=== PATIENT | male | born 1940 | race Caucasian/White ===

== ENCOUNTER 2016-10-11 09:41 | Inpatient (IN) | payer MEDICARE, OTHER ==
--- NOTE | ~2016-10-11 | OP ---
Record Of Operation [facility] [address] [place]. [address] NAME: MAEVE HERZOG : 36 STATUS : DIS IN PAT#: [id number] AGE: 75 ADM/REG DATE : 10/11/16 MR#: [id number] REPORT SERV DATE: 10/14/16 DICTATED BY: JOSSELYN VINES DATE: 10/11/16 REPORT STATUS : Draft TRANSCRIBED BY: MODL DATE: 10/11/16 DATE OF PROCEDURE: 10/11/2016 PREOPERATIVE DIAGNOSIS: 5.5 cm abdominal aortic aneurysm with recent rapid growth. POSTOPERATIVE DIAGNOSIS: 5.5 cm abdominal aortic aneurysm with recent rapid growth. PROCEDURE: 1. Ultrasound-guided percutaneous access, bilateral common femoral arteries. 2. Catheter placement in the abdominal aorta from bilateral femoral access. 3. Abdominal aortogram. 4. Endovascular abdominal aortic aneurysm repair with modular endograft with 2 docking limbs (Medtronic Endurant EIIs, 36 x 14 x 103 main body from the right, 16 x 24 x 156 left iliac limb, and 16 x 24 x 124 right iliac limb. SURGEON: Josselyn Vines M.D. NUMERICAL CONTROL LATHE OPERATOR: Joe. ANESTHESIA: General endotracheal. ESTIMATED BLOOD LOSS: 25 mL. CONTRAST: 40 mL. IV FLUIDS: 500 mL. COMPLICATIONS: None. INDICATION: Mr. Herzog is a pleasant 75-year-old man with known diagnosis of abdominal aortic aneurysm. It has increased in size from 4.8 cm to 5.5 cm over the past year. He is recommended for elective endovascular repair. DETAILS OF PROCEDURE: After informed consent was obtained, patient was brought to the endovascular suite, placed in supine position. After administration of anesthesia, he was intubated. He was prepped and draped in the usual sterile fashion. A time-out was performed. I commenced the procedure with ultrasound-guided percutaneous access of the right common femoral artery. A permanent image of the artery documenting patency was saved and stored in the patient's chart. I accessed with an 18-gauge entry needle, passed a Bentson wire confirmed within aorta under fluoroscopy. I then made a stab incision over the access site down the common femoral artery. I dilated the access site with a 6-Kosovan sheath. I then placed two ProGlide closure devices in the Preclose technique. We then systemically heparinized. I then placed 11-Kosovan sheath. After that I used ultrasound guidance to percutaneously access the left side in the same manner. Image of that vessel was saved and stored in the patient's chart as well. I accessed with 18-gauge entry needle, passed a Bentson wire confirmed within the aorta under fluoroscopy. I then again made a Record Of Operation [facility] [address] [place]. [address] NAME: MAEVE HERZOG : 38 STATUS : DIS IN PAT#: [id number] AGE: 75 ADM/REG DATE : 10/11/16 MR#: [id number] REPORT SERV DATE: 10/14/16 DICTATED BY: JOSSELYN VINES DATE: 10/11/16 REPORT STATUS : Draft TRANSCRIBED BY: MODEddi DATE: 10/11/16 stab incision down to the common femoral artery over the access site. After that, I dilated the tract with a 6-Kosovan sheath. Two ProGlide closure devices were placed on the left side in the Preclose technique as well. Eleven-Kosovan sheath was placed on that side as well. After that, I used a bur 2 to exchange the Bentson wire from the right for an Amplatz wire. I advanced a Marker flush catheter from the left. Abdominal aortogram was performed, which demonstrated the infrarenal abdominal aorta to be aneurysmal. There was no contrast extravasation. The iliac vessels are ectatic but not frankly aneurysmal. Internal and external iliac arteries were patent bilaterally. Renal arteries were patent bilaterally with no stenosis. After that, based on preoperative measurements, we selected a Medtronic Endurant EIIs device. This was delivered over the Amplatz wire from the right femoral access. This was a 36 x 14 x 103 main body device. This was delivered up to the level of the renal arteries. It was deployed down to the contralateral gate. We then released the suprarenal fixation. This was uneventful. After that, we cannulated the contralateral gate with a bryson 2 and a Bentson wire. Catheter spun freely within the graft indicating it was within the lumen of the graft. I then placed an Amplatz wire on that side. Marker flush catheter was advanced over the wire from the left femoral sheath. Retrograde contrast injection was performed through the left femoral sheath. The level of the internal iliac artery was marked on the left. Based on this measurement, we selected a 16 x 24 x 156 left iliac limb. This was deployed without difficulty. Removed the delivery system. Replaced 11-Kosovan sheath. After that, we completed the delivery of the main body system. We replaced the 16-Kosovan sheath. We then performed retrograde contrast injection through the right femoral sheath again noting the internal iliac on the right. Based on this measurement, we selected a 16 x 24 x 124 right iliac limb. This was deployed without difficulty. Delivery system was removed leaving the 16-Kosovan sheath in place. After that we used a Reliant balloon to balloon the proximal distal fixation sites as well as stent overlap sites. Completion of aortogram was performed, which showed perfect position of the aortic stent graft with exclusion of the aneurysm and no significant endoleak. Bilateral renal arteries and internal iliac arteries remained patent with no impairment of flow. After that, wires and catheters were removed. Sheaths on both sides were removed, and the access site successfully closed with a ProGlide closure device through the Preclose technique. We ensured hemostasis. Cord incision was closed the 4-0 Monocryl and Dermabond. Sterile dressings were applied. The patient tolerated the procedure well without complications. I was present for this entire case as dictated. VINICIUS/LUISA Josselyn Vines M.D. / [id number] CC: Yoli Carmona M.D. Ahmad Ibrahimbacha, MD Record Of [address] [address] NAME: MAEVE HERZOG : 36 STATUS : DIS IN PAT#: [id number] AGE: 75 ADM/REG DATE : 10/11/16 MR#: [id number] REPORT SERV DATE: 10/14/16 DICTATED BY: JOSSELYN VINES. DATE: 10/11/16 REPORT STATUS : Draft TRANSCRIBED BY: MODL DATE: 10/11/16 Tasia Avendano MD
[~2016-10-11 09:41] MED LIST: ASAB PO; BREO ELLIPTA INH; CLARIT10 PO; COZAAR100 MG PO; FLOVENT DISK100 MCG INH; MULTIPLE SUPPLEMENTS; NORV5 PO; PREVALITE4 G1 PO; PRILO PO; Z100 PO
[2016-10-11 10:15] LABS: HEMATOCRIT 42.2 % (40.0-51.0); HEMOGLOBIN 14.3 g/dL (13.6-17.8)
[2016-10-11 10:22] LABS: BUN (BLOOD UREA NITROGEN) 30 MG/DL (6-23); CALCIUM, SERUM 8.8 MG/DL (8.5-10.4); CHLORIDE, SERUM 114 MMOL/L (96-112); CO2 (CARBON DIOXIDE) 26 MMOL/L (24-34); GFR AFRICAN AMERICAN 41 ML/MIN (>=60); GFR NON AFRICAN AMERICAN 36 ML/MIN (>=60); GLUCOSE, SERUM 118 MG/DL (60-99); POTASSIUM, SERUM 4.5 MMOL/L (3.5-5.3); SODIUM, SERUM 146 MMOL/L (135-148)
[2016-10-12 04:02] LABS: BASOPHILS 0 %; EOSINOPHILS 0 %; HEMOGLOBIN 12.3 g/dL (13.6-17.8); IMMATURE GRANULOCYTES 0.3 %; IMMATURE GRANULOCYTES ABSOLUTE 0.03 10/3/uL (0.0-0.11); LYMPHOCYTES 6.5 %; LYMPHOCYTES ABSOLUTE 0.67 10/3/uL (0.67-4.30); MEAN CORPUS HGB CONC 33.5 g/dL (32.0-36.0); MEAN CORPUSCULAR HEMOGLOB 31.5 pg (26.0-34.0); MEAN CORPUSCULAR VOLUME 93.9 fL (80-100); MEAN PLATELET VOLUME 9.8 fL (9.2-13.0); MONOCYTES 8.3 %; MONOCYTES ABSOLUTE 0.86 10/3/uL (0.21-1.20); NEUTROPHILS 84.9 %; NEUTROPHILS ABSOLUTE 8.81 10/3/uL (2.02-8.40); PLATELET COUNT 137 10/3/uL (150-400); RBC DISTRIBUTION WIDTH 14.3 % (12.0-16.0); RED CELL COUNT 3.91 10/6/uL (4.7-6.1); WHITE BLOOD CELLS 10.4 10/3/uL (4.5-10.5)
[2016-10-12 04:04] LABS: HEMATOCRIT 36.7 % (40.0-51.0); MANUAL DIFF NO %
[2016-10-12 04:22] LABS: BUN (BLOOD UREA NITROGEN) 30 MG/DL (6-23); CHLORIDE, SERUM 110 MMOL/L (96-112); CO2 (CARBON DIOXIDE) 24 MMOL/L (24-34); CREATININE 1.62 MG/DL (0.70-1.30); GFR AFRICAN AMERICAN 47 ML/MIN (>=60); GFR NON AFRICAN AMERICAN 40 ML/MIN (>=60); GLUCOSE, SERUM 139 MG/DL (60-99); POTASSIUM, SERUM 4.8 MMOL/L (3.5-5.3); SODIUM, SERUM 141 MMOL/L (135-148)
== END 2016-10-12 11:00 | disposition home or self-care (01) | DRG 269 ==
LOC: SDC/OF 09:41 → PACU 12:37 → CVICU 14:07
PROVIDERS: Surgery
PROC: 04V03EZ Restriction of Abdominal Aorta with Branched or Fenestrated Intraluminal Device, One or Two Arteries, Percutaneous Approach (ICD-10-PCS; principal; 2016-10-11 11:45)
DX: I71.4 Abdominal aortic aneurysm, without rupture (principal); E11.22 Type 2 diabetes mellitus with diabetic chronic kidney disease; N18.9 Chronic kidney disease, unspecified; F17.210 Nicotine dependence, cigarettes, uncomplicated
CPT/HCPCS: 34803; 36200; 36415; 75952; 76937; 80048; 82962; 83735; 85014; 85018; 85025; 86850; 86900; 86901; 87641; 93005; A9270-GY; C1725; C1760; C1769; C1876; C1894; J0690; J2250; J2370; J2405; J2710; J2720; J3010; J3370; Q9967